=== PATIENT | female | born 1930 | race African-American/Black ===

== ENCOUNTER 2019-02-13 11:36 | Inpatient (IN) | payer MEDICARE, MEDICAID ==
[~2019-02-13] VITALS: Ht 170.2 cm; Wt 83.9 kg
[2019-02-13 12:23] LABS: BASOPHILS % 0.3 % (0.0-2.0); EOSINOPHILS % 1.4 % (0.0-5.0); LYMPHOCYTES % 27.5 % (20.0-50.0); MEAN CORPUSCULAR VOLUME 121.5 fL (81.0-99.0); MEAN PLATELET VOLUME 9.4 fl (7.4-10.4); MONOCYTES % 2.7 % (2.0-8.0); NEUTROPHILS % 68.1 % (40.0-76.0); PLATELET 106 x1000/uL (130-400); RED BLOOD CELL COUNT 1.31 mill/uL (4.2-5.4); RED CELL DISTRIBUTION WIDTH 18.8 % (11.6-14.6)
[2019-02-13 12:24] LABS: CHLORIDE 103 mEq/L (98-107)
[2019-02-13 12:28] LABS: HEMOGLOBIN. 5.3 g/dL (12.0-16.0)
[2019-02-13] MEDS ORDERED: SODIUM CHLORIDE 0.9% 500 ML IV ONE (12:33)
[2019-02-13 12:50] LABS: INR 1.2; PROTHROMBIN TIME 12.2 sec (9.6-11.0)
[2019-02-13] MEDS ORDERED: ACETAMINOPHEN 325MG TABLET PO PRN (13:30)
[2019-02-13] MEDS ORDERED: ONDANSETRON HCL 4MG/2ML INJ IV PRN (13:30)
[2019-02-13 14:09] LABS: PLATELET ESTIMATE DECREASED
[2019-02-13 17:20] VITALS: BP 123/41
[2019-02-13 18:04] VITALS: BP 108/35
[2019-02-13] MEDS: SUCRALFATE 1 G/10 ML UDC PO SCH ×2 (18:32→21:51)
[2019-02-13] MEDS: FUROSEMIDE 40MG/4ML VIAL IVP SCH (18:33)
[2019-02-13 19:40] LABS: FOLIC ACID (FOLATE) SERUM 4.7 ng/mL (>5.38)
[2019-02-13 20:00] VITALS: BP_SYST 106; BP_SYST 86; BP_DIAS 36; BP_DIAS 49
[2019-02-13] MEDS ORDERED: APIX2.5T PO (21:09)
[2019-02-13] MEDS ORDERED: OMEP20TA2 PO (21:09)
[2019-02-13] MEDS: OMEPRAZOLE 20MG CAPSULE EXTENDED RELEASE PO SCH (21:51)
[2019-02-13 21:56] LABS: HEMOGLOBIN 6.4 g/dL (12.0-16.0)
[2019-02-13 21:57] LABS: HEMATOCRIT 18.2 % (36.0-48.0)
[2019-02-13 23:00] VITALS: BP 105/41
[2019-02-13 23:30] VITALS: BP 100/41
[2019-02-14] VITALS (15 sets, daily range): BP systolic 86–135; BP diastolic 33–66
[2019-02-14 03:27] LABS: BASOPHILS % 0.3 % (0.0-2.0); EOSINOPHILS % 2.3 % (0.0-5.0); HEMOGLOBIN. 7.5 g/dL (12.0-16.0); LYMPHOCYTES % 32.8 % (20.0-50.0); MEAN CORPUSCULAR HEMOGLOBIN 34.9 pg (28.0-32.0); MEAN CORPUSCULAR VOLUME 102.6 fL (81.0-99.0); MEAN PLATELET VOLUME 9.2 fl (7.4-10.4); MONOCYTES % 2.8 % (2.0-8.0); NEUTROPHILS % 61.8 % (40.0-76.0); PLATELET 92 x1000/uL (130-400); RED BLOOD CELL COUNT 2.14 mill/uL (4.2-5.4); RED CELL DISTRIBUTION WIDTH 31.5 % (11.6-14.6)
[2019-02-14 03:31] LABS: CHLORIDE 104 mEq/L (98-107)
[2019-02-14] MEDS ORDERED: ASCO500C15 PO (05:35)
[2019-02-14] MEDS ORDERED: PULM50 IH (05:35)
[2019-02-14] MEDS ORDERED: TRAM50TA3 PO (05:35)
[2019-02-14] MEDS ORDERED: BISA10SU62 RC (05:35)
[2019-02-14] MEDS ORDERED: OMEP20CA5 PO (05:35)
[2019-02-14] MEDS ORDERED: ACET-2178 PO (05:35)
[2019-02-14] MEDS: SUCRALFATE 1 G/10 ML UDC PO SCH ×5 (06:37→20:47)
[2019-02-14] MEDS: OMEPRAZOLE 20MG CAPSULE EXTENDED RELEASE PO SCH ×2 (06:37→20:36)
[2019-02-14] MEDS: FUROSEMIDE 40MG/4ML VIAL IVP SCH ×2 (06:37→17:47)
[2019-02-14 11:32] LABS: HEMATOCRIT 26.4 % (36.0-48.0); HEMOGLOBIN 9.1 g/dL (12.0-16.0)
[2019-02-14] MEDS ORDERED: IPRATROPIUM/ALBUTEROL 0.5-3(2.5)MG/3ML NEB HHN PRN (12:15)
[2019-02-14] MEDS ORDERED: CYANOCOBALAMIN 1000MCG/ML VIAL IM SCH (13:15)
[2019-02-14] MEDS: FOLIC ACID 1MG TABLET PO SCH (14:07)
[2019-02-14] MEDS ORDERED: APIXABAN 2.5 MG TABLET PO SCH (17:00)
[2019-02-14] MEDS ORDERED: MORPHINE SULFATE 2 MG/ML CPJ (NOT FOR IM USE) IV PRN (18:15)
[2019-02-14] MEDS ORDERED: ONDANSETRON HCL 4MG/2ML INJ IV PRN (18:15)
[2019-02-14] MEDS ORDERED: LEVOFLOXACIN 500MG PREMIX 100 ML IV SCH (21:00)
[2019-02-15] VITALS: BP 142/47
[2019-02-15 04:00] VITALS: BP 122/51
[2019-02-15] MEDS: FUROSEMIDE 40MG/4ML VIAL IVP SCH ×2 (06:17→17:17)
[2019-02-15] MEDS: SUCRALFATE 1 G/10 ML UDC PO SCH ×6 (06:18→21:27)
[2019-02-15] MEDS: CYANOCOBALAMIN 100MCG TABLET PO SCH (06:18)
[2019-02-15] MEDS: OMEPRAZOLE 20MG CAPSULE EXTENDED RELEASE PO SCH ×2 (06:18→21:27)
[2019-02-15 06:38] LABS: BASOPHILS % 0.1 % (0.0-2.0); EOSINOPHILS % 2.9 % (0.0-5.0); HEMATOCRIT. 26.9 % (36.0-48.0); HEMOGLOBIN. 9.4 g/dL (12.0-16.0); MEAN CORPUSCULAR HEMOGLOBIN 34.3 pg (28.0-32.0); MEAN CORPUSCULAR VOLUME 98.5 fL (81.0-99.0); MONOCYTES % 2.6 % (2.0-8.0); NEUTROPHILS % 63.4 % (40.0-76.0); PLATELET 86 x1000/uL (130-400); RED BLOOD CELL COUNT 2.73 mill/uL (4.2-5.4); RED CELL DISTRIBUTION WIDTH 30.8 % (11.6-14.6)
[2019-02-15 08:21] VITALS: BP 115/46
[2019-02-15] MEDS: DILTIAZEM HCL 30MG TABLET PO SCH ×3 (08:31→17:17)
[2019-02-15] MEDS: FOLIC ACID 1MG TABLET PO SCH (08:31)
[2019-02-15 12:25] VITALS: BP 123/52
[2019-02-15 15:32] VITALS: BP 111/44
[2019-02-15 15:43] LABS: CLARITY URINE CLEAR (CLEAR); COLOR URINE YELLOW (YELLOW); KETONES URINE NEGATIVE (NEGATIVE); LEUKOCYTE ESTERASE URINE 2+ (NEGATIVE); NITRITE URINE NEGATIVE (NEGATIVE); OCCULT BLOOD URINE 2+ (NEGATIVE); PROTEIN URINE NEGATIVE (NEGATIVE); SPECIFIC GRAVITY URINE 1.007 (1.005-1.030); UROBILINOGEN URINE 0.2 E.U./dL (0.2-1.0)
[2019-02-15 20:00] VITALS: BP 140/68
[2019-02-15] MEDS: GUAIFENESIN/CODEINE 200-20MG/10ML UDC PO PRN ×2 (21:27→21:33)
[2019-02-15] MEDS: LEVOFLOXACIN 250MG PREMIX 50 ML IV SCH (21:27)
[2019-02-16] VITALS: BP 106/49
[2019-02-16 04:00] VITALS: BP 124/62
[2019-02-16] MEDS: SUCRALFATE 1 G/10 ML UDC PO SCH ×5 (06:09→21:43)
[2019-02-16] MEDS: DILTIAZEM HCL 30MG TABLET PO SCH ×2 (07:09)
[2019-02-16] MEDS: OMEPRAZOLE 20MG CAPSULE EXTENDED RELEASE PO SCH ×2 (07:09→21:43)
[2019-02-16] MEDS: FUROSEMIDE 40MG/4ML VIAL IVP SCH ×2 (07:09→17:48)
[2019-02-16 07:17] LABS: BASOPHILS % 0.1 % (0.0-2.0); EOSINOPHILS % 4.3 % (0.0-5.0); HEMATOCRIT. 27.8 % (36.0-48.0); HEMOGLOBIN. 9.5 g/dL (12.0-16.0); LYMPHOCYTES % 32.3 % (20.0-50.0); MEAN CORPUSCULAR HEMOGLOBIN 34.3 pg (28.0-32.0); MEAN CORPUSCULAR VOLUME 99.9 fL (81.0-99.0); MEAN PLATELET VOLUME 9.2 fl (7.4-10.4); MONOCYTES % 6.7 % (2.0-8.0); NEUTROPHILS % 56.6 % (40.0-76.0); PLATELET 79 x1000/uL (130-400); RED BLOOD CELL COUNT 2.78 mill/uL (4.2-5.4); RED CELL DISTRIBUTION WIDTH 29.6 % (11.6-14.6)
[2019-02-16 07:36] LABS: CHLORIDE 94 mEq/L (98-107)
[2019-02-16 08:00] VITALS: BP 117/58
[2019-02-16] MEDS: FOLIC ACID 1MG TABLET PO SCH (08:13)
[2019-02-16] MEDS: CYANOCOBALAMIN 100MCG TABLET PO SCH (08:13)
[2019-02-16] MEDS ORDERED: POTASSIUM CHLORIDE 20MEQ TABLET SR PO NR ×2 (11:00→18:00)
[2019-02-16 12:00] VITALS: BP 111/61
[2019-02-16] MEDS: DILTIAZEM HCL 60MG TABLET PO SCH ×2 (12:30→17:48)
[2019-02-16] MEDS: POTASSIUM CHLORIDE 20MEQ TABLET SR PO SCH ×2 (12:31→17:48)
[2019-02-16 16:00] VITALS: BP 104/53
[2019-02-16 20:00] VITALS: BP 106/51
[2019-02-16] MEDS: LEVOFLOXACIN 250MG PREMIX 50 ML IV SCH (21:43)
[2019-02-17] VITALS: BP 110/41
[2019-02-17] MEDS: DILTIAZEM HCL 60MG TABLET PO SCH ×4 (00:30→17:45)
[2019-02-17 04:00] VITALS: BP 105/35
[2019-02-17 06:18] LABS: BASOPHILS % 0.2 % (0.0-2.0); HEMATOCRIT. 26.7 % (36.0-48.0); HEMOGLOBIN. 9.1 g/dL (12.0-16.0); MEAN CORPUSCULAR HEMOGLOBIN 34.6 pg (28.0-32.0); MEAN PLATELET VOLUME 9.3 fl (7.4-10.4); MONOCYTES % 7.8 % (2.0-8.0); PLATELET 71 x1000/uL (130-400); RED BLOOD CELL COUNT 2.64 mill/uL (4.2-5.4)
[2019-02-17] MEDS: SUCRALFATE 1 G/10 ML UDC PO SCH (06:18)
[2019-02-17] MEDS: FUROSEMIDE 40MG/4ML VIAL IVP SCH ×2 (06:18→17:45)
[2019-02-17] MEDS: CYANOCOBALAMIN 100MCG TABLET PO SCH (06:18)
[2019-02-17] MEDS: OMEPRAZOLE 20MG CAPSULE EXTENDED RELEASE PO SCH ×2 (06:18→21:38)
[2019-02-17 06:26] LABS: CHLORIDE 98 mEq/L (98-107)
[2019-02-17 08:00] VITALS: BP 107/42
[2019-02-17] MEDS: FOLIC ACID 1MG TABLET PO SCH (09:13)
[2019-02-17] MEDS: POTASSIUM CHLORIDE 20MEQ TABLET SR PO SCH ×2 (09:13→17:45)
[2019-02-17] MEDS ORDERED: MAGNESIUM 2 G PREMIX 50 ML IV SCH (10:00)
[2019-02-17 12:00] VITALS: BP 103/50
[2019-02-17] MEDS: LEVOFLOXACIN 250MG TABLET PO SCH (13:05)
[2019-02-17] MEDS ORDERED: METOCLOPRAMIDE HCL 10MG/2ML VIAL IV SCH ×3 (15:15→23:00)
[2019-02-17] MEDS ORDERED: BISACODYL 5MG TABLET PO SCH ×3 (15:15→23:00)
[2019-02-17 16:00] VITALS: BP 129/53
[2019-02-17] MEDS ORDERED: SORBITOL 70% SOLN 30ML PO SCH ×2 (16:00→20:00)
[2019-02-17] MEDS ORDERED: MAGNESIUM 1 G PREMIX 100 ML IV NR (17:00)
[2019-02-17] MEDS ORDERED: MAGNESIUM 4 G PREMIX 100 ML IV SCH (17:00)
[2019-02-17 20:00] VITALS: BP 108/47
[2019-02-18] VITALS: BP 118/62
[2019-02-18] MEDS ORDERED: SORBITOL 70% SOLN 30ML PO SCH
[2019-02-18] MEDS: DILTIAZEM HCL 60MG TABLET PO SCH ×5 (00:49→23:21)
[2019-02-18] MEDS ORDERED: BISACODYL 5MG TABLET PO SCH (01:00)
[2019-02-18 04:00] VITALS: BP 146/69
[2019-02-18 06:24] LABS: HEMATOCRIT. 28.3 % (36.0-48.0); HEMOGLOBIN. 9.7 g/dL (12.0-16.0); MEAN CORPUSCULAR HEMOGLOBIN 34.6 pg (28.0-32.0); MEAN CORPUSCULAR VOLUME 100.7 fL (81.0-99.0); MEAN PLATELET VOLUME 9.7 fl (7.4-10.4); PLATELET 70 x1000/uL (130-400); RED BLOOD CELL COUNT 2.81 mill/uL (4.2-5.4); RED CELL DISTRIBUTION WIDTH 28.7 % (11.6-14.6)
[2019-02-18 06:32] LABS: INR 1.1; PARTIAL THROMBOPLASTIN TIME 25.9 sec (23.4-31.0); PROTHROMBIN TIME 10.8 sec (9.6-11.0)
[2019-02-18] MEDS: OMEPRAZOLE 20MG CAPSULE EXTENDED RELEASE PO SCH ×2 (06:45→21:09)
[2019-02-18 06:48] LABS: CHLORIDE 100 mEq/L (98-107)
[2019-02-18 06:54] LABS: PHOSPHORUS 5.9 mg/dL (2.5-4.9)
[2019-02-18] MEDS: FUROSEMIDE 40MG/4ML VIAL IVP SCH ×2 (06:59→18:32)
[2019-02-18] MEDS: CYANOCOBALAMIN 100MCG TABLET PO SCH (07:10)
[2019-02-18 08:00] VITALS: BP 95/37
[2019-02-18] MEDS: FOLIC ACID 1MG TABLET PO SCH (09:31)
[2019-02-18] MEDS: POTASSIUM CHLORIDE 20MEQ TABLET SR PO SCH ×2 (09:31→18:33)
[2019-02-18] MEDS ORDERED: SORBITOL 70% SOLN 30ML PO NR (11:00)
[2019-02-18] MEDS: LEVOFLOXACIN 250MG TABLET PO SCH (11:52)
[2019-02-18 12:00] VITALS: BP 109/43
[2019-02-18] MEDS ORDERED: POTASSIUM CHLORIDE INJ 40 MEQ in DEXT 5% WATER 250 ML IV NR (15:00)
[2019-02-18] MEDS ORDERED: PROPOFOL 200MG/20ML VIAL IV ONE (16:32)
[2019-02-18] MEDS ORDERED: SIMETHICONE 40 MG/0.6 ML 30ML ONE (16:33)
[2019-02-18] MEDS ORDERED: MEPERIDINE HCL/PF 25MG/ML CPJ IV PRN (17:00)
[2019-02-18] MEDS ORDERED: HYDROMORPHONE HCL/PF 2MG/ML CPJ IV PRN (17:00)
[2019-02-18] MEDS ORDERED: LABETALOL 5MG/ML SYR 20 MG/4 ML SYRINGE IV PRN (17:00)
[2019-02-18] MEDS ORDERED: ONDANSETRON HCL 4MG/2ML INJ IV PRN (17:00)
[2019-02-18 17:36] LABS: PLATELET ESTIMATE DECREASED
[2019-02-18 18:31] VITALS: BP 119/39
[2019-02-18 20:00] VITALS: BP 125/47
[2019-02-19] VITALS (7 sets, daily range): BP systolic 97–114; BP diastolic 31–53
[2019-02-19] MEDS: DILTIAZEM HCL 60MG TABLET PO SCH ×2 (05:57→11:30)
[2019-02-19] MEDS: OMEPRAZOLE 20MG CAPSULE EXTENDED RELEASE PO SCH ×2 (05:57→21:28)
[2019-02-19] MEDS: FUROSEMIDE 40MG/4ML VIAL IVP SCH ×2 (05:57→17:25)
[2019-02-19] MEDS: CYANOCOBALAMIN 100MCG TABLET PO SCH (05:58)
[2019-02-19] MEDS: FOLIC ACID 1MG TABLET PO SCH (08:33)
[2019-02-19] MEDS: POTASSIUM CHLORIDE 20MEQ TABLET SR PO SCH ×2 (08:33→17:25)
[2019-02-19 10:16] LABS: BASOPHILS % 0.2 % (0.0-2.0); EOSINOPHILS % 7.9 % (0.0-5.0); HEMATOCRIT. 26.6 % (36.0-48.0); HEMOGLOBIN. 8.7 g/dL (12.0-16.0); LYMPHOCYTES % 20.8 % (20.0-50.0); MEAN CORPUSCULAR HEMOGLOBIN 33.8 pg (28.0-32.0); MEAN CORPUSCULAR VOLUME 103.8 fL (81.0-99.0); MEAN PLATELET VOLUME 9.9 fl (7.4-10.4); MONOCYTES % 8.4 % (2.0-8.0); NEUTROPHILS % 62.7 % (40.0-76.0); PLATELET 92 x1000/uL (130-400); RED BLOOD CELL COUNT 2.56 mill/uL (4.2-5.4); RED CELL DISTRIBUTION WIDTH 27.3 % (11.6-14.6)
[2019-02-19 10:20] LABS: CHLORIDE 102 mEq/L (98-107)
[2019-02-19] MEDS: LEVOFLOXACIN 250MG TABLET PO SCH (11:30)
[2019-02-19] MEDS: DILTIAZEM HCL 30MG TABLET PO SCH ×2 (13:13→21:28)
[2019-02-20] VITALS: BP 109/48
[2019-02-20 04:00] VITALS: BP 122/60
[2019-02-20] MEDS: OMEPRAZOLE 20MG CAPSULE EXTENDED RELEASE PO SCH (07:00)
[2019-02-20] MEDS: DILTIAZEM HCL 30MG TABLET PO SCH ×2 (07:00→13:42)
[2019-02-20 07:15] LABS: BASOPHILS % 0.2 % (0.0-2.0); EOSINOPHILS % 6.8 % (0.0-5.0); HEMATOCRIT. 29.3 % (36.0-48.0); HEMOGLOBIN. 9.4 g/dL (12.0-16.0); LYMPHOCYTES % 21.4 % (20.0-50.0); MEAN CORPUSCULAR HEMOGLOBIN 33.2 pg (28.0-32.0); MEAN CORPUSCULAR VOLUME 103.1 fL (81.0-99.0); MEAN PLATELET VOLUME 10.5 fl (7.4-10.4); MONOCYTES % 6.1 % (2.0-8.0); NEUTROPHILS % 65.5 % (40.0-76.0); PLATELET 153 x1000/uL (130-400); RED BLOOD CELL COUNT 2.84 mill/uL (4.2-5.4); RED CELL DISTRIBUTION WIDTH 25.7 % (11.6-14.6)
[2019-02-20 07:40] LABS: CHLORIDE 101 mEq/L (98-107)
[2019-02-20 08:00] VITALS: BP 106/53
[2019-02-20] MEDS: FOLIC ACID 1MG TABLET PO SCH (08:10)
[2019-02-20] MEDS: CYANOCOBALAMIN 100MCG TABLET PO SCH (08:10)
[2019-02-20] MEDS: POTASSIUM CHLORIDE 20MEQ TABLET SR PO SCH (08:10)
[2019-02-20 11:17] VITALS: BP_SYST 106; BP_SYST 96; BP_DIAS 53
[2019-02-20] MEDS: LEVOFLOXACIN 250MG TABLET PO SCH (11:43)
[2019-02-20 12:06] VITALS: BP 96/53
[2019-02-23 15:11] LABS: METHYLMALONIC ACID 3459 nmol/L (0-378)
== END 2019-02-20 15:00 | DRG 871 ==
LOC: ER 11:36 → 5WST 12:54 → EDBEDREQ 12:58 → ENRESERV 13:48
PROVIDERS: ADMIT Internal Medicine Nephrology; ATTEND Internal Medicine Nephrology
PROC: 30233N1 Transfusion of Nonautologous Red Blood Cells into Peripheral Vein, Percutaneous Approach (ICD-10-PCS; 2019-02-13)
PROC: 0DB68ZX Excision of Stomach, Via Natural or Artificial Opening Endoscopic, Diagnostic (ICD-10-PCS; principal; 2019-02-18)
PROC: 0DJD8ZZ Inspection of Lower Intestinal Tract, Via Natural or Artificial Opening Endoscopic (ICD-10-PCS; 2019-02-18)
DX: A41.9 Sepsis, unspecified organism (principal); J96.20 Acute and chronic respiratory failure, unspecified whether with hypoxia or hypercapnia; I50.41 Acute combined systolic (congestive) and diastolic (congestive) heart failure; E44.0 Moderate protein-calorie malnutrition; I48.1 Persistent atrial fibrillation; E46 Unspecified protein-calorie malnutrition; N39.0 Urinary tract infection, site not specified; I48.92 Unspecified atrial flutter; I11.0 Hypertensive heart disease with heart failure; J44.9 Chronic obstructive pulmonary disease, unspecified; I25.10 Atherosclerotic heart disease of native coronary artery without angina pectoris; D53.9 Nutritional anemia, unspecified; D69.6 Thrombocytopenia, unspecified; K29.50 Unspecified chronic gastritis without bleeding; K44.9 Diaphragmatic hernia without obstruction or gangrene; K64.8 Other hemorrhoids; E53.8 Deficiency of other specified B group vitamins; K21.9 Gastro-esophageal reflux disease without esophagitis; E83.42 Hypomagnesemia; E87.6 Hypokalemia; M19.90 Unspecified osteoarthritis, unspecified site; L89.159 Pressure ulcer of sacral region, unspecified stage; I44.0 Atrioventricular block, first degree; D17.5 Benign lipomatous neoplasm of intra-abdominal organs; F03.90 Unspecified dementia, unspecified severity, without behavioral disturbance, psychotic disturbance, mood disturbance, and anxiety; S81.819A Laceration without foreign body, unspecified lower leg, initial encounter; X58.XXXA Exposure to other specified factors, initial encounter; Y93.89 Activity, other specified; I25.2 Old myocardial infarction; Z99.81 Dependence on supplemental oxygen; Z99.3 Dependence on wheelchair; Z79.01 Long term (current) use of anticoagulants; Z74.01 Bed confinement status; Z68.29 Body mass index [BMI] 29.0-29.9, adult; Z88.2 Allergy status to sulfonamides; Z88.8 Allergy status to other drugs, medicaments and biological substances; Z91.041 Radiographic dye allergy status; Z90.49 Acquired absence of other specified parts of digestive tract; Z90.710 Acquired absence of both cervix and uterus; Z72.0 Tobacco use; Z79.82 Long term (current) use of aspirin; Z91.81 History of falling; Z79.899 Other long term (current) drug therapy; Y92.89 Other specified places as the place of occurrence of the external cause; Y99.8 Other external cause status
CPT/HCPCS: 36415; 71045; 80048; 80061; 80076; 82270; 82607; 82728; 82746; 82962; 83036; 83540; 83550; 83735; 83880; 83921; 84100; 84134; 84443; 84484; 85014; 85018; 85044; 86850; 86900; 86920; 88305; 88313; 93005; 93306; 93970; 94640; 96372; 99285; A6261; J1940; J1956; J2704; J2765; J3420; J3475; J3480; J7030; J7040; J7050; J7060; J7620; P9016; A4315